=== PATIENT | male | born 1945 | race Caucasian/White ===

== ENCOUNTER 2018-04-29 13:17 | Emergency (ER) | payer OTHER ==
[2018-04-29] MEDS ORDERED: ONDANSETRON 4 MG/2 ML VIAL ONE (14:06)
[2018-04-29] MEDS ORDERED: MORPHINE 4 MG/ML SYR ONE (14:06)
[2018-04-29] MEDS ORDERED: KETOROLAC 30 MG/ML INJ ONE (14:06)
[2018-04-29 14:33] LABS: Absolute Lymphocytes (CBC) 2.3 K/uL (0.7-4.9); Absolute Monocytes 1.2 K/uL (0.1-1.3); Absolute Neutrophil 4.1 K/uL (1.8-8.0); Basophils % 0.5 % (0-1.3); Eosinophils % 5.3 % (0-4.4); Hematocrit 40.9 % (39.6-49.0); Lymphocytes % 28.9 % (15.3-44.8); MCH 30.3 pg (27.0-35.0); MCV 91.6 fL (80-100); MPV 8.5 fL (7.6-11.3); Monocytes % 14.6 % (3.3-12.3); RBC Red Blood Cell Count 4.47 M/uL (4.33-5.43)
[2018-04-29 14:39] LABS: Albumin 3.7 g/dL (3.4-5.0); Bilirubin Total 0.4 mg/dL (0.2-1.0); Potassium 4.5 mmol/L (3.5-5.1); Protein, Total 7.8 g/dL (6.4-8.2)
--- NOTE | 2018-04-29 15:23 | RAD REPORT ---
EXAM DESCRIPTION: CT - Thorax W/ Con - 04/29/2018 3:07 pm CLINICAL HISTORY: Lung cancer with chest pain COMPARISON: January 2018 TECHNIQUE: Computed axial tomography of the chest was obtained. 100 cc Isovue 300 was administered i ntravenously. All CT scans are performed using dose optimization technique as appropriate and may include automated exposure control or mA/KV adjustment according to patient size. FINDINGS: The posterior right upper lobe mass is without significant change in size or appearance. T he superior aspect of the mass extending into the right lung apex is also unchanged. Mild right lower lobe opacities are stable. The left lung is clear. No mediastinal or hilar lymphadenopathy is seen. A pleural effusion is not present. A pericardial effusion is not present The left adrenal mass is unchanged. Small vague hepatic lesions are unchanged. IMPRESSION: No significant change in the right upper lobe mass. No change in left adrenal mass and small hepatic lesions
--- NOTE | 2018-04-29 15:54 | ER ---
Nurse's Notes [facility] Name: Dipak Luna Age: 73 yrs Sex: Male : 1945 Arrival Date: 04/29/2018 Time: 13:20 Bed 30 Private MD: out of town, doctor Diagnosis: back pain. ;metastatic cancer. Presentation: 04/29 13:22 Presenting complaint: Patient states: i have back pain on my R shoulder blade and both hj hands, wrist are swollen and its hard to move, hx of brain, lung and kidney cancers; still getting chemo tx;. Transition of care: patient was not received from another setting of care. Onset of symptoms was April 29, 2018. Risk Assessment: Do you want to hurt yourself or someone else? Patient reports no desire to harm self or others. Initial Sepsis Screen: Does the patient meet any 2 criteria? No. Patient's initial sepsis screen is negative. Does the patient have a suspected source of infection? No. Patient's initial sepsis screen is negative. Care prior to arrival: None. 13:22 Method Of Arrival: Ambulatory 13:22 Acuity: SHEEBA 4 hj Triage Assessment: 13:24 General: Appears in no apparent distress. uncomfortable, Behavior is calm, cooperative, hj appropriate for age. Pain: Complains of pain in R shoulder, wrists and hands. Historical: - Allergies: 13:24 NKA; hj - Home Meds: 13:24 BP med [Active]; Unknown blood thinner [Active]; Unknown cholesterol med [Active]; hj - PMHx: 13:24 brain cancer; Depression; High Cholesterol; Hypertension; Lung Cancer; [place]; hj - PSHx: 13:24 heart sents; hj - Immunization history:: Adult Immunizations up to date. - Social history:: Smoking status: unknown Patient/guardian denies using alcohol. - Ebola Screening: : Patient negative for fever greater than or equal to 101.5 degrees Fahrenheit, and additional compatible Ebola Virus Disease symptoms Patient denies exposure to infectious person Patient denies travel to an Ebola-affected area in the 21 days before illness onset. Screenin:25 Abuse screen: Denies threats or abuse. Denies injuries from another. Nutritional hj screening: No deficits noted. Tuberculosis screening: No symptoms or risk factors identified. Fall Risk None identified. Assessment: 14:34 General: Appears in no apparent distress. comfortable, Behavior is calm, cooperative, aj appropriate for age. Pain: Complains of pain in right wrist and left wrist. Neuro: Level of Consciousness is awake, alert, obeys commands, Oriented to person, place, time, situation, Appropriate for age. Respiratory: Airway is patent Respiratory effort is even, unlabored, Respiratory pattern is regular, symmetrical. Derm: Skin is intact, is healthy with good turgor, Skin is pink, warm \T\ dry. normal. Musculoskeletal: Circulation, motion, and sensation intact. Range of motion: intact in all extremities, Reports pain in right arm and left wrist. 15:18 Reassessment: Patient appears in no apparent distress at this time. No changes from tl3 previously documented assessment. Patient and/or family updated on plan of care and expected duration. Pain level reassessed. Patient is alert, oriented x 3, equal unlabored respirations, skin warm/dry/pink. pt just returned from CT pain is much better in back hands are still a little tender with manipulation. 16:11 Reassessment: Patient appears in no apparent distress at this time. No changes from tl3 previously documented assessment. Patient and/or family updated on plan of care and expected duration. Pain level reassessed. Patient is alert, oriented x 3, equal unlabored respirations, skin warm/dry/pink. Vital Signs: 13:25 BP 178 / 120; Pulse 72; Resp 18; Temp 98.0(O); Pulse Ox 98% on R/A; Weight 87.54 kg; Height 6 ft. 0 in. (182.88 cm); Pain 8/10; 15:18 BP 140 / 67; Pulse 63; Resp 18; Pulse Ox 100% on 2 lpm NC; tl3 16:11 BP 136 / 63; Pulse 59; Resp 18; Pulse Ox 100% ; tl3 13:25 Body Mass Index 26.17 (87.54 kg, 182.88 cm) ED Course: 13:20 Patient arrived in ED. mr 13:20 out of town, doctor is Private Physician. mr 13:24 Triage completed. hj 13:25 August Beltran MD is Attending Physician. ps1 13:25 Arm band placed on left wrist. hj 13:25 Patient has correct armband on for positive identification. Bed in low position. Call light in reach. Side rails up X 1. Adult w/ patient. 13:29 Iris Bob, RN is Primary Nurse. tl3 13:54 Primary Nurse role handed off by Iris Bob RN aj 13:54 Lydia Jacobson, [place] is Primary Nurse. aj 14:10 Inserted saline lock: 20 gauge in right forearm, using aseptic technique. Blood aj collected. By Iris. 15:07 Thorax W/ Con In Process Unspecified. EDMS 15:18 No provider procedures requiring assistance completed. tl3 16:11 IV discontinued, intact, bleeding controlled, No redness/swelling at site. Pressure tl3 dressing applied. Administered Medications: 14:10 Drug: morphine 4 mg Route: IVP; Site: right forearm; aj 15:22 Follow up: Response: Pain is decreased tl3 14:11 Drug: TORadol 30 mg Route: IVP; Site: right forearm; aj 15:23 Follow up: Response: No adverse reaction tl3 14:16 Not Given (route changed): Zofran 4 mg PO once aj 14:16 Drug: Zofran 4 mg Route: IVP; Site: right forearm; aj 15:23 Follow up: Response: No adverse reaction tl3 Outcome: 15:53 Discharge ordered by . ps1 16:11 Discharged to home ambulatory. tl3 16:11 Condition: stable 16:11 Discharge instructions given to patient, family, Instructed on discharge instructions, follow up and referral plans. Demonstrated understanding of instructions, follow-up care, Prescriptions given X 16:13 Patient left the ED. tl3 Signatures: Dispatcher [employer] EDMS Lydia Jacobson RN RN aj Rivera, Maria mr Joaquin, Henry, RN RN hj Singer, Phillip, MD MD ps1 Lowrey, Tammy, [place] RN tl3 Corrections: (The following items were deleted from the chart) 13:27 13:25 Pulse 72bpm; Resp 18bpm; Pulse Ox 98% RA; Temp 98.0F Oral; 87.54 kg; Height 6 ft. hj 0 in.; BMI: 26.1; Pain 8/10; hj 14:11 14:11 Zofran 4 mg PO aj trish
--- NOTE | 2018-04-29 15:54 | EDPHYS ---
Physician Documentation [facility] Name: Dipak Luna Age: 73 yrs Sex: Male : 1945 Arrival Date: 04/29/2018 Time: 13:20 Bed 30 Private MD: out of town, doctor ED Physician August Beltran HPI: 04/29 15:41 This 73 yrs old Male presents to ER via Ambulatory with complaints of Pain ps1 All Over. 15:41 The patient presents with pain that is chronic, with no known mechanism of injury. ps1 patient has a history of lung cancer with mets. He is on motrin and T3. He called his oncologist office about mid scapular back pain and was instructed to come to the emergency department for evaluation. He needed to get a repeat CT Thorax for reevaluation of his cancer treatment. Pain is sharp. Rated as moderate. Worse with bracing hands to elevate.. Historical: - Allergies: 13:24 NKA; hj - Home Meds: 13:24 BP med [Active]; Unknown blood thinner [Active]; Unknown cholesterol med [Active]; hj - PMHx: 13:24 brain cancer; Depression; High Cholesterol; Hypertension; Lung Cancer; [place]; hj - PSHx: 13:24 heart sents; hj - Immunization history:: Adult Immunizations up to date. - Social history:: Smoking status: unknown Patient/guardian denies using alcohol. - Ebola Screening: : Patient negative for fever greater than or equal to 101.5 degrees Fahrenheit, and additional compatible Ebola Virus Disease symptoms Patient denies exposure to infectious person Patient denies travel to an Ebola-affected area in the 21 days before illness onset. ROS: 15:41 Constitutional: Negative for fever, chills, and weight loss, Eyes: Negative for injury, ps1 pain, redness, and discharge, Cardiovascular: Negative for chest pain, palpitations, and edema, Respiratory: Negative for shortness of breath, cough, wheezing, and pleuritic chest pain, Abdomen/GI: Negative for abdominal pain, nausea, vomiting, diarrhea, and constipation, MS/Extremity: Negative for injury and deformity, Skin: Negative for injury, rash, and discoloration. 15:41 Back: Positive for pain with movement. Exam: 15:41 Constitutional: This is a well developed, well nourished patient who is awake, alert, ps1 and in no acute distress. Head/Face: Normocephalic, atraumatic. Eyes: Pupils equal round and reactive to light, extra-ocular motions intact. Lids and lashes normal. Conjunctiva and sclera are non-icteric and not injected. Chest/axilla: Normal chest wall appearance and motion. Nontender with no deformity. No lesions are appreciated. Cardiovascular: Regular rate and rhythm. No gallops, murmurs, or rubs. Normal PMI, no JVD. No pulse deficits. Respiratory: Lungs have equal breath sounds bilaterally, clear to auscultation and percussion. No rales, rhonchi or wheezes noted. No increased work of breathing, no retractions or nasal flaring. MS/ Extremity: Pulses equal, no cyanosis. Neurovascular intact. Full, normal range of motion. Neuro: Awake and alert, GCS 15, oriented to person, place, time, and situation. Cranial nerves II-XII grossly intact. Sensory grossly intact. 15:41 Back: pain, that is moderate, ROM is normal, muscle spasm, is appreciated in the left scapular area and right scapular area. 15:41 Musculoskeletal/extremity: Extremities: grossly normal except: noted in the right wrist and left wrist: pain. Vital Signs: 13:25 BP 178 / 120; Pulse 72; Resp 18; Temp 98.0(O); Pulse Ox 98% on R/A; Weight 87.54 kg; hj Height 6 ft. 0 in. (182.88 cm); Pain 8/10; 15:18 BP 140 / 67; Pulse 63; Resp 18; Pulse Ox 100% on 2 lpm NC; tl3 16:11 BP 136 / 63; Pulse 59; Resp 18; Pulse Ox 100% ; tl3 13:25 Body Mass Index 26.17 (87.54 kg, 182.88 cm) hj MDM: 13:44 Patient medically screened. ps1 15:51 Data reviewed: vital signs, nurses notes, old medical records, lab test result(s), ps1 radiologic studies, CT scan, and as a result, I will discharge patient. Special discussion: I discussed with the patient/guardian in detail that at this point there is no indication for admission to the hospital. It is understood, however, that if the symptoms persist or worsen the patient needs to return immediately for re-evaluation. Based on the history and exam findings, there is no indication for further emergent testing or inpatient evaluation. I discussed with the patient/guardian the need to see the heel splitter/oncologist for further evaluation of the symptoms. 07 14:01 Order name: CBC with Diff; Complete Time: 14:47 ps1 04/29 14:01 Order name: CMP; Complete Time: 14:47 ps1 04/29 15:01 Order name: Thorax W/ Con; Complete Time: 15:39 EDMS Administered Medications: 14:10 Drug: morphine 4 mg Route: IVP; Site: right forearm; aj 15:22 Follow up: Response: Pain is decreased tl3 14:11 Drug: TORadol 30 mg Route: IVP; Site: right forearm; aj 15:23 Follow up: Response: No adverse reaction tl3 14:16 Not Given (route changed): Zofran 4 mg PO once aj 14:16 Drug: Zofran 4 mg Route: IVP; Site: right forearm; aj 15:23 Follow up: Response: No adverse reaction tl3 Disposition: 04/29/18 15:53 Discharged to Home. Impression: back pain. , metastatic cancer. . - Condition is Stable. - Discharge Instructions: Lung Cancer. - Medication Reconciliation Form, Thank You Letter, Antibiotic Education, Prescription Opioid Use form. - Follow up: Private Physician; When: As needed; Reason: Further diagnostic work-up, Recheck today's complaints, Continuance of care, Re-evaluation by your physician. Follow up: Emergency Department; When: As needed; Reason: Fever > 102 F, Trouble breathing, Worsening of condition. - Problem is an ongoing problem. - Symptoms are unchanged. Signatures: Dispatcher [employer] EDIA Lydia Jacobson RN RN aj Joaquin, Henry, RN RN hj Singer, Phillip, MD MD ps1 Lowrey, Tammy, RN RN tl3 Corrections: (The following items were deleted from the chart) 14:58 14:02 Thorax W/ Con+CT.RAD.BRZ ordered. EDIA EDIA 15:01 14:58 Thorax Wo Con ordered. [facility] EDIA 16:13 15:53 04/29/2018 15:53 Discharged to Home. Impression: back pain. ; metastatic cancer. tl3 . Condition is Stable. Forms are Medication Reconciliation Form, Thank You Letter, Antibiotic Education, Prescription Opioid Use. Follow up: Private Physician; When: As needed; Reason: Further diagnostic work-up, Recheck today's complaints, Continuance of care, Re-evaluation by your physician. Follow up: Emergency Department; When: As needed; Reason: Fever > 102 F, Trouble breathing, Worsening of condition. Problem is an ongoing problem. Symptoms are unchanged. ps1
== END 2018-04-29 16:13 | disposition home or self-care (01) ==
LOC: ER 13:17
DX: M54.89 Other dorsalgia (principal); C78.00 Secondary malignant neoplasm of unspecified lung; I10 Essential (primary) hypertension; E78.00 Pure hypercholesterolemia, unspecified; Z85.841 Personal history of malignant neoplasm of brain; Z95.818 Presence of other cardiac implants and grafts
CPT/HCPCS: 36415; 71260; 80053; 85025; 96374; 96375; 99284; J2405; Q9967

== ENCOUNTER 2018-07-23 09:24 | Emergency (ER) | payer OTHER ==
--- NOTE | 2018-07-23 10:00 | ER ---
Nurse's Notes [facility] Name: Dipak Luna Age: 73 yrs Sex: Male : 1945 Arrival Date: 07/23/2018 Time: : Bed 12 Private MD: Diagnosis: Conjunctivitis;loer lid ecchymosis Presentation: 07/23 09:27 Presenting complaint: Bruising under left eye after scratching face yesterday. Denies hb pain. Transition of care: patient was not received from another setting of care. Onset of symptoms was July 22, 2018. Risk Assessment: Do you want to hurt yourself or someone else? Patient reports no desire to harm self or others. Initial Sepsis Screen: Does the patient meet any 2 criteria? No. Patient's initial sepsis screen is negative. Does the patient have a suspected source of infection? No. Patient's initial sepsis screen is negative. Care prior to arrival: None. 09:27 Method Of Arrival: Ambulatory hb 09:27 Acuity: SHEEBA 4 hb Triage Assessment: 09:38 General: Appears in no apparent distress. Behavior is calm, cooperative. Pain: Denies hb pain. EENT: Eyes bruising noted under left eye. Neuro: Level of Consciousness is awake, alert, obeys commands, Oriented to person, place, time, situation. Cardiovascular: Capillary refill < 3 seconds Patient's skin is warm and dry. Respiratory: Airway is patent Respiratory effort is even, unlabored, Respiratory pattern is regular, symmetrical. Historical: - Allergies: 09:30 NKA; hb - Home Meds: 09:30 BP med [Active]; Unknown blood thinner [Active]; Unknown cholesterol med [Active]; hb - PMHx: 09:30 brain cancer; Depression; High Cholesterol; Hypertension; Lung Cancer; [place]; hb - PSHx: 09:30 heart sents; hb - Immunization history:: Adult Immunizations up to date. - Social history:: Smoking status: Patient/guardian denies using tobacco. - Ebola Screening: : No symptoms or risks identified at this time. Screenin:30 Abuse screen: Denies threats or abuse. Denies injuries from another. Nutritional hb screening: No deficits noted. Tuberculosis screening: No symptoms or risk factors identified. Fall Risk None identified. Assessment: 09:39 General: see triage assessment. hb 10:10 Reassessment: Patient appears in no apparent distress at this time. No changes from previously documented assessment. Patient and/or family updated on plan of care and expected duration. Pain level reassessed. Patient is alert, oriented x 3, equal unlabored respirations, skin warm/dry/pink. Patient denies pain at this time. Vital Signs: 09:29 BP 143 / 99; Pulse 83; Resp 16; Temp 97.4(TE); Pulse Ox 100% on R/A; Pain 0/10; hb ED Course: 09:26 Patient arrived in ED. mr 09:29 Triage completed. hb 09:29 Arm band placed on left wrist. hb 09:34 Steven Montague MD is Attending Physician. gs 09:38 Jasmina Morin RN is Primary Nurse. hb 09:39 Patient has correct armband on for positive identification. Call light in reach. hb 09:57 Jordon Gibson MD is Referral Physician. gs 10:10 No provider procedures requiring assistance completed. Patient did not have IV access hb during this emergency room visit. Administered Medications: No medications were administered Outcome: 10:00 Discharge ordered by . gs 10:10 Discharged to home ambulatory, with significant other. hb 10:10 Condition: stable 10:10 Discharge instructions given to patient, significant other, Instructed on discharge instructions, follow up and referral plans. medication usage, Demonstrated understanding of instructions, follow-up care, medications, Prescriptions given X 1. 10:10 Patient left the ED. Signatures: Curtis Tamela alvarado Jasmina Morin RN RN Steven Montague MD MD
--- NOTE | 2018-07-24 10:11 | EDPHYS ---
Physician Documentation [facility] Name: Dipak Luna Age: 73 yrs Sex: Male : 1945 Arrival Date: 07/23/2018 Time: 09:26 Bed 12 Private MD: ED Physician Steven Montague HPI: 07/23 15:34 This 73 yrs old Male presents to ER via Ambulatory with complaints of Eye gs Swelling. 15:34 The patient is experiencing matting or discharge, redness, bruising under left eye was gs rubbing eye as was itching. Onset: The symptoms/episode began/occurred 2 day(s) ago, and became persistent. Duration: the symptoms are continuous. Aggravated by opening eye. Associated signs and symptoms: Pertinent negatives: chills, fever. Severity of symptoms: At their worst the symptoms were moderate in the emergency department the symptoms are unchanged. The patient has not experienced similar symptoms in the past. Historical: - Allergies: 09:30 NKA; hb - Home Meds: 09:30 BP med [Active]; Unknown blood thinner [Active]; Unknown cholesterol med [Active]; hb - PMHx: 09:30 brain cancer; Depression; High Cholesterol; Hypertension; Lung Cancer; [place]; hb - PSHx: 09:30 heart sents; hb - Immunization history:: Adult Immunizations up to date. - Social history:: Smoking status: Patient/guardian denies using tobacco. - Ebola Screening: : No symptoms or risks identified at this time. ROS: 15:34 All other systems are negative. gs Exam: 15:34 Head/Face: Normocephalic, atraumatic. ENT: Nares patent. No nasal discharge, no gs septal abnormalities noted. Tympanic membranes are normal and external auditory canals are clear. Oropharynx with no redness, swelling, or masses, exudates, or evidence of obstruction, uvula midline. Mucous membranes moist. Neck: Trachea midline, no thyromegaly or masses palpated, and no cervical lymphadenopathy. Supple, full range of motion without nuchal rigidity, or vertebral point tenderness. No Meningismus. 15:34 Eyes: Periorbital structures: ecchymosis, that is mild, on the left lower eyelid, Conjunctiva: injected, in the left eye, Corneas: are normal. Vital Signs: 09:29 BP 143 / 99; Pulse 83; Resp 16; Temp 97.4(TE); Pulse Ox 100% on R/A; Pain 0/10; hb MDM: 09:45 Patient medically screened. 15:34 Differential diagnosis: Data reviewed: vital signs, nurses notes. Response to treatment: There is no appreciated change of the patient's symptoms at this time, and as a result, I will discharge patient. Administered Medications: No medications were administered Disposition: 07/23/18 10:00 Discharged to Home. Impression: Conjunctivitis, loer lid ecchymosis. - Condition is Stable. - Discharge Instructions: Bacterial Conjunctivitis. - Prescriptions for Ocuflox 0.3 % Ophthalmic Drops - instill 2 drops by OPHTHALMIC route every 6 hours for 2 days; 5 milliliter. - Medication Reconciliation Form, Thank You Letter, Antibiotic Education, Prescription Opioid Use form. - Follow up: Jordon Gibson MD; When: 2 - 3 days; Reason: Re-evaluation by your physician. Signatures: Jasmina Morin RN RN Steven Montague MD MD Corrections: (The following items were deleted from the chart) 10:10 10:00 07/23/2018 10:00 Discharged to Home. Impression: Conjunctivitis; loer lid hb ecchymosis. Condition is Stable. Forms are Medication Reconciliation Form, Thank You Letter, Antibiotic Education, Prescription Opioid Use. Follow up: Jordon Gibson; When: 2 - 3 days; Reason: Re-evaluation by your physician.
== END 2018-07-23 10:10 | disposition home or self-care (01) ==
LOC: ER 09:24
DX: H10.9 Unspecified conjunctivitis (principal); I10 Essential (primary) hypertension; F32.9 Major depressive disorder, single episode, unspecified; E78.00 Pure hypercholesterolemia, unspecified; Z79.01 Long term (current) use of anticoagulants; Z85.118 Personal history of other malignant neoplasm of bronchus and lung; Z85.841 Personal history of malignant neoplasm of brain; Z95.818 Presence of other cardiac implants and grafts
CPT/HCPCS: 99282